=== PATIENT | female | born 1980 | race Hispanic/Latino ===

== ENCOUNTER 2016-06-15 15:54 | Emergency (ER) | payer OTHER ==
[~2016-06-15] VITALS: Ht 157.5 cm; Wt 85.0 kg
[2016-06-15 15:57] VITALS: BP 135/106; PULSE 109; RESP 18; O2SAT 99
--- NOTE | 2016-06-15 16:21 | ED.REPORT ---
HPI-Psychiatric Illness Date of Service June 15, 2016 ED Provider: Dr. Tiwari Patient is a 35 year old female who presents to the ED with suicidal ideations that began last night. She states that her previous has been "turning her children against her". She has had thoughts of suicide due to this as her ex does not want her to see her children. She does report thoughts of hanging herself last night. She denies wanting to take her life as she does not want to leave her children. She denies feeling this way previously. The patient denies access to firearms and is not on any medications. The patient also c/o a sharp left sided headache that began Tuesday morning. She states that the headache is a 1/10 currently but is severe enough at times to make her hold her head. She also complains of associated nausea. Patient also admits to black stools with abdominal pain that she describes as feeling like her stomach is "crunched up." Nothing relieves either of these symptom. She denies chest pain, cough, fever, chills or respiratory problems. Nursing Notes Stated Complaint: DEPRESSION Chief Complaint: Psychiatric Complaint Nursing Notes Reviewed: Yes Allergies: Coded Allergies: [place] (Verified Allergy, Unknown, 07/22/15) Uncoded Allergies: [place] (Allergy, Unknown, 01/18/05) General Time Seen by MD: 16:21 Chief Complaint Suicidal ideation Hx Obtained From: Patient Arrived By: Walk-in Onset Occurred: 1 day ago Symptom Duration: Since onset Severity: Current: Mild Severity: Maximum: Severe Recent Healthcare: No recent doctor visit, No recent hospitalization Similar Sx Previous: No Risk-Psychiatric Illness Suicide Risk Stratification Suicide Risk Factors - Adult: No: Access to firearms, Previous attempt, Prior psych admission RF Statements: Risk factors reviewed Past Medical History Past Medical History None reported Past Surgical History Reports: Reports: Tubal ligation Family History Mother: hypertension, diabetes mellitus, breast cancer Smoking History Never Smoker Social History Alcohol Use: "Social" Drug Use: Denies drug use Other Social History: Good social support, Local resident Occupation lives with boyfriend Ambulatory Status Independent Review of Systems Constitutional: Denies: Chills, Fever Respiratory: Denies: Non-productive cough, Shortness of breath Cardiovascular: Denies: Chest pain GI: Reports: Abdominal pain (epigastric), Bloody/tarry stool, Nausea Neurologic: Reports: Headache (Left side) Psychiatric: Reports: Stress, Suicidal ideation Complete sys rev & neg: except as marked. Physical Exam Initial Vital Signs Vital Signs (First) Date Time Temp Pulse Resp B/P Pulse Ox O2 Delivery O2 Flow Rate FiO2 06/15/16 15:57 36.2 109 18 135/106 99 Room Air Initial VS: Reviewed, Vital signs abnormal Head / Eyes: Atraumatic, Normocephalic ENT: Mucous membranes moist, Conjunctiva normal, No scleral icterus Neck: Supple, Non-tender Respiratory: Breath sounds normal, No respiratory distress Cardiovascular: Regular rate & rhythm, Heart sounds normal Abdomen / GI: Soft, Non-tender, No guarding, No rebound Extremities: Vascular intact, Neuro intact, No swelling, No tenderness Skin: Warm, Dry General/Constitutional: Awake, Alert, No acute distress, Well appearing, Not toxic appearing Neurologic: Oriented X3, Speech NL, No motor deficits, No sensory deficits Psychiatric: Not homicidal, No hallucinations, Cognitive function NL, Judgment/ insight NL, Thought content NL Abnormal Mood/Affect: Positive: Depressed Abnormal Thinking / Perception: Positive: Suicidal, no plan Rectum / Perineum: Atraumatic, Blood - occult heme -, No gross blood Brown stools Interpretation & Diagnostics Lab Results Interpretation Result Diagram: 06/15/16 1640 06/15/16 1640 Test 06/15/16 16:40 06/15/16 16:47 White Blood Count 9.5th/mm3 (3.8-10.1) Red Blood Count 4.71mil/mm3 (3.90-5.20) Hemoglobin 15.1g/dL (12.0-15.6) Hematocrit 42.2% (35.0-46.0) Mean Corpuscular Volume 89.6fL (81-100) Mean Corpuscular Hemoglobin 32.1pg (27.0-35.0) Mean Corpuscular Hemoglobin Concent 35.8% (32.0-37.0) Red Cell Distribution Width 12.6% (12.3-15.4) Platelet Count 316bil/L (150-400) Neutrophils (%) (Auto) 61.1% (40-74) Lymphocytes (%) (Auto) 31.4% (14-46) Monocytes (%) (Auto) 5.9% (4-12) Eosinophils (%) (Auto) 1.3% (0-5) Basophils (%) (Auto) 0.2% (0-3) Sodium Level 136mEq/L (134-144) Potassium Level 3.5mEq/L (3.5-5.2) Chloride Level 102mEq/L (97-108) Carbon Dioxide Level 18mmol/L (18-29) Blood Urea Nitrogen 9mg/dL (6-20) Creatinine 0.56mg/dL (0.57-1.00) Estimat Glomerular Filtration Rate 176mL/min (>59) Glucose Level 147mg/dL (60-99) Calcium Level 9.0mg/dL (8.5-10.1) Total Bilirubin 2.2mg/dL (0.0-1.2) Aspartate Amino Transf (AST/SGOT) 22U/L (0-50) Alanine Aminotransferase (ALT/SGPT) 19U/L (0-32) Alkaline Phosphatase 61U/L (25-150) Total Protein 8.1g/dL (6.4-8.4) Albumin 4.5g/dL (3.4-5.0) Lipase 20U/L (13-60) Thyroid Stimulating Hormone (TSH) 2.380uIU/mL (0.450-4.500) Hold [place] Top Tube Received (Received) Hold Urine Received (Received) Re-Eval/Medical Decision Med Decision/Clinical Course The patient presents with suicidal ideation, she has never had these symptoms before. The patient was thought to be low risk, she saw our director of social work and was no longer suicidal. She has good support and has follow-up. Patient had other complaints however her additional evaluation here is unremarkable. Source of Hx: Old records Re-Evaluation/Progress : Time of Eval: 16:50 )( Re-Eval Psychiatric: No danger to self, No danger to others, No suicidal ideation, No homicidal ideation Re-Evaluation/Progress Note: Patient is informed of plan to discharge. She understands and agrees with the plan. All questions have been answered at this time. Consultation : Consulted With: hand worker Note: ED director of social work examined the patient and feels that she is safe for discharge. Counseled Regarding: Diagnosis, Need for follow-up, When/why to return to ED Discharge & Departure Impression: Primary Impression: Suicidal ideation )( Condition at Discharge: No danger to self, No danger to others, No suicidal ideation, No homicidal ideation Disposition: Home Discharge Condition All VS Reviewed: Yes Condition: Improved Additional Instructions: Thank you for entrusting us with your care today. Please keep your appointment tomorrow as scheduled. Return to the emergency department if suicidal thoughts return or any other symptoms occur. Referrals: [facility] (PCP) Scribe Attestation Portions of this note were transcribed by Jossie Arambula and Av [address]. I, Dr. Tiwari personally performed the history, physical exam and medical decision- making; I reviewed and confirmed the accuracy of the information in the transcribed note. Signed by: Jossie Arambula and Kirby Silverman, 2016 at 2240. Swetha Tiwari MD June 15, 2016 16:[address] June 15, 2016 17:17 Jossie Arambula June 15, 2016 22:35
[2016-06-15 16:52] LABS: BASOPHILS % (AUTO) 0.2 % (0-3); EOSINOPHILS % (AUTO) 1.3 % (0-5); MONOCYTES % (AUTO) 5.9 % (4-12); Mean Corpuscular Hemoglobin 32.1 pg (27.0-35.0); Mean Corpuscular Volume 89.6 fL (81-100); NEUTROPHILS % (AUTO) 61.1 % (40-74); Platelet Count 316 bil/L (150-400)
[2016-06-15] MEDS ORDERED: Ondansetron 8 mg ODT Tablet PO ONE (17:15)
[2016-06-15 19:03] VITALS: PULSE 76; RESP 16
[2016-06-15 20:33] VITALS: PULSE 78; RESP 16
== END 2016-06-15 20:33 | disposition home or self-care (01) ==
LOC: SED 15:54
DX: R45.851 Suicidal ideations (principal); R51 Headache; R11.0 Nausea; R19.5 Other fecal abnormalities; R10.13 Epigastric pain; Z91.018 Allergy to other foods